=== PATIENT | male | born 1970 ===

== ENCOUNTER 2017-06-02 20:38 | Emergency (ER) | payer OTHER ==
[2017-06-02 20:38] VITALS: BMI 39.4
[2017-06-02] MEDS ORDERED: Sodium Chloride 0.9% 1,000 ML IV STA (23:00)
--- NOTE | 2017-06-02 23:05 | ED PDOC ---
HPI: General Adult Time Seen by Provider: 06/02/17 22:50 Chief Complaint (Nursing): Fever History Per: Patient Additional Complaint(s): Pt. states since Monday last week he's had cough, congestion, and fever. Pt. was seen in [facility] and tested positive for the flu. He was prescribed Tamiflu and symptoms have persisted. So he f/u with his PMD, Dr. Lan, who saw him on Monday and prescribed him promethazine/codiene. Reports no relief in fever despite taking both Motrin and Tylenol. Also reports having SOB due to his nasal congestion and having chest pain only with coughing. Denies hemoptysis , sick contacts, recent travel, rash, N/V/D, abdominal pain. Past Medical History Reviewed: Historical Data, Nursing Documentation, Vital Signs Vital Signs: Last Vital Signs Temp 98.9 F 06/03/17 02:31 Pulse 99 H 06/03/17 02:31 Resp 18 06/03/17 02:31 BP 120/78 06/03/17 02:31 Pulse Ox 98 06/03/17 02:34 - Medical History PMH: Asthma, Diabetes, Gastritis, HTN, Hypercholesterolemia Other PMH: Kidney CA - Surgical History Surgical History: Back Surgery - Family History Family History: States: No Known Family Hx - Home Medications Home Medications: Ambulatory Orders Medication Instructions Recorded Ibuprofen [Motrin Tab] 800 mg PO Q8 PRN #20 tab 04/03/15 Metaxalone [Skelaxin] 800 mg PO Q8H PRN #20 tab 04/03/15 Ciprofloxacin HCl [Cipro] 500 mg PO BID #19 tab 05/12/16 Dicyclomine [Bentyl] 20 mg PO TID #21 tab 05/12/16 Metronidazole [Flagyl] 500 mg PO TID #29 tablet 05/12/16 predniSONE [Prednisone] 20 mg PO DAILY #3 tab 06/03/17 - Allergies Allergies/Adverse Reactions: Allergies Allergy/AdvReac Type Severity Reaction Status Date / Time No Known Allergies Allergy Verified 01/05/16 11:16 Review of Systems ROS Statement: Except As Marked, All Systems Reviewed And Found Negative Constitutional: Positive for: Fever ENT: Positive for: Throat Pain Respiratory: Positive for: Cough Physical Exam - Reviewed Nursing Documentation Reviewed: Yes Vital Signs Reviewed: Yes - Physical Exam Appears: Positive for: Well, Non-toxic, No Acute Distress Head Exam: Positive for: ATRAUMATIC, NORMAL INSPECTION, NORMOCEPHALIC Skin: Positive for: Normal Color, Warm. Negative for: Rash Eye Exam: Positive for: EOMI, Normal appearance, PERRL ENT: Positive for: Normal ENT Inspection Neck: Positive for: Normal, Painless ROM Cardiovascular/Chest: Positive for: Regular Rate, Rhythm Respiratory: Positive for: CNT, Normal Breath Sounds Gastrointestinal/Abdominal: Positive for: Normal Exam, Bowel Sounds, Soft. Negative for: Tenderness Back: Positive for: Normal Inspection Extremity: Positive for: Normal ROM Neurologic/Psych: Positive for: Alert, Oriented. Negative for: Aphasia, Facial Droop - Laboratory Results Result Diagrams: 06/02/17 23:59 06/02/17 23:59 - ECG O2 Sat by Pulse Oximetry: 98 - Radiology X-Ray: Interpreted by Me (CXR) X-Ray Interpretation: No Acute Disease - Progress ED Course And Treament: Labs, CXR, tylenol 975mg PO, IV NS hydration ordered. Pt. still with continued pain. Toradol 15mg IV, solu-medrol 62.5mg IV ordered. Pt. evaluated by Dr. Rodríguez in ED. CXR: NAD as per vrad report. On second re-evaluation, pt. reports feeling much better. 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
[2017-06-03 00:15] LABS: VENOUS BLOOD GAS BASE EXCESS -1.1 mmol/L (0.0-2.0); VENOUS BLOOD GAS PCO2 38 mmHg (40-60); VENOUS BLOOD GAS PO2 49 mm/Hg (30-55)
[2017-06-03 00:16] LABS: BASO # 0.1 K/uL (0.0-0.2); BASO % 0.8 % (0.0-2.0); EOS # 0.1 K/uL (0.0-0.7); EOS % 0.9 % (0.0-4.0); HEMOGLOBIN 11.7 g/dL (12.0-18.0); LYMPH # 3.8 K/uL (1.0-4.3); LYMPH % 40.2 % (20.0-40.0); MEAN CELL VOLUME 73.3 fl (80.0-94.0); MEAN CORPUSCULAR HEMOGLOBIN 24.1 pg (27.0-31.0); MEAN CORPUSCULAR HGB CONC 32.9 g/dL (33.0-37.0); MEAN PLATELET VOLUME 7.5 fl (7.2-11.7); MONO # 0.7 K/uL (0.0-0.8); NEUT # 4.8 K/uL (1.8-7.0); NEUT % 51.1 % (50.0-75.0); NRBC % 0.1 % (0.0-0.0); RBC 4.87 Mil/uL (4.40-5.90); WHITE BLOOD COUNT 9.4 K/uL (4.8-10.8)
[2017-06-03 00:34] LABS: ALBUMIN 3.7 g/dL (3.5-5.0); ALT/SGPT 95 U/L (21-72); AST/SGOT 40 U/L (17-59); BLOOD UREA NITROGEN 14 mg/dl (9-20); CALCIUM 9.4 mg/dL (8.4-10.2); GFR AFRICAN-AMERICAN > 60; GFR NON-AFRICAN AMERICAN > 60
[2017-06-03] MEDS ORDERED: Acetaminophen 160 mg/5 ml UD ONE (00:41)
[2017-06-03] MEDS ORDERED: Morphine 4 MG/ML VIAL IVP STA (00:46)
[2017-06-03] MEDS ORDERED: Morphine 4 MG/ML VIAL ONE (00:46)
[2017-06-03 02:32] VITALS: BP 120/78; PULSE 99; RESP 18; TEMP 98.9
[2017-06-03 02:33] VITALS: O2SAT 98
--- NOTE | 2017-06-03 09:52 | RAD ---
HISTORY: cough COMPARISON: Frontal chest radiograph 12/27/2016. TECHNIQUE: Chest PA and lateral FINDINGS: Overall inspiratory volume appears diminished. LUNGS: Limited patchy infiltrate is questioned at the right infrahilar space extending to the medial base. No left-sided infiltrate. PLEURA: No significant pleural effusion identified. No pneumothorax apparent. CARDIOVASCULAR: Stable cardiomediastinal silhouette. OSSEOUS STRUCTURES: No significant abnormalities. VISUALIZED UPPER ABDOMEN: Normal. OTHER FINDINGS: None. IMPRESSION: Probable early infiltrate right base medially and infrahilar space. Remainder of the examination is remarkable for diminished inspiratory effort.
--- NOTE | 2017-06-03 19:29 | CARD ---
APPROVED REPORT EKG Measurement Heart [id number] <Conclusion> Sinus tachycardia Otherwise normal ECG
== END 2017-06-03 02:40 | disposition home or self-care (01) ==
LOC: H.ER 20:38
DX: B34.9 Viral infection, unspecified (principal); E11.9 Type 2 diabetes mellitus without complications; E78.00 Pure hypercholesterolemia, unspecified; I10 Essential (primary) hypertension; J45.909 Unspecified asthma, uncomplicated; Z85.528 Personal history of other malignant neoplasm of kidney
CPT/HCPCS: 71046; 80053; 82803; 82948; 85025; 87040; 87070; 87430; 87804; 93005; 96374; 96375; 99283; J2270; J2405; J2930; J7040